=== PATIENT | male | born 1945 ===

== ENCOUNTER → 2023-08-13 | Outpatient (CLI) | payer MEDICARE, BC | LOC: RAD 10:17 | DX: M17.11 Unilateral primary osteoarthritis, right knee (principal) ==

== ENCOUNTER → 2024-04-27 | Outpatient (CLI) | payer MEDICARE, BC | LOC: RAD 10:41 | DX: J98.4 Other disorders of lung (principal); K57.90 Diverticulosis of intestine, part unspecified, without perforation or abscess without bleeding; R79.89 Other specified abnormal findings of blood chemistry ==